=== PATIENT | male | born 1965 | race Caucasian/White ===

== ENCOUNTER 2017-05-29 09:33 | Emergency (ER) | payer OTHER ==
[~2017-05-29] VITALS: Ht 193 cm; Wt 158.8 kg
[~2017-05-29 09:33] MED LIST: AMLO10TA PO; TRAM50TA1 PO
[2017-05-29 10:01] VITALS: BP 164/110
--- NOTE | 2017-05-29 10:05 | NUR ---
Patient to bed 03.
--- NOTE | 2017-05-29 10:09 | NUR ---
51/M BIB SELF C/O PAIN & CHRONIC WOUND TO LEFT LOWER LEG X1 YEAR. PT STATES HE'S HAD AN OPEN SORE ON HIS LEFT LOWER LEG X1 YEAR THAT HAS GOTTEN WORSE. HX HTN, PRE-DIABETIC, HEP C.DENIES N/V/D; AAOX4 WITH EVEN AND UNSTEADY GAIT , AMB WITH CRUTCHES; LUNGS CLEAR BL; HR EVEN AND REGULAR; PT DENIES ANY FEVER, CP, SOB, OR COUGH AT THIS TIME; PATIENT STATES PAIN OF 10/10 AT THIS TIME; PATIENT POSITIONED FOR COMFORT; HOB ELEVATED; BEDRAILS UP X2; BED DOWN. ER MADE AWARE OF PT STATUS. Addendum: 05/29/17 at 1020 by [email or web address] LLE SWELLING Addendum: 05/29/17 at 1021 by [email or web address] WOUND TO LLE & SWELLING & REDNESS.
--- NOTE | 2017-05-29 10:22 | NUR ---
ER MD DR. GUSTAFSON EVALUATING PT AT BEDSIDE.
[2017-05-29 10:42] VITALS: BP 145/80
--- NOTE | 2017-05-29 10:42 | NUR ---
Patient discharged with BP 145/80, DENIES HEADACHE OR DIZINESS AT THIS TIME; MD MADE AWARE. Written and verbal after care instructions given and explained. Patient alert, oriented and verbalized understanding of instructions. Ambulatory with CRUTCHES. All questions addressed prior to discharge. ID band removed. Patient advised to follow up with PMD. Rx of KEFLEX, BACTRIM & OXYCODONE HCL given. Patient educated on indication of medication including possible reaction and side effects. Opportunity to ask questions provided and answered.
== END 2017-05-29 10:42 | disposition home or self-care (01) ==
LOC: MED 09:33
DX: I83.028 Varicose veins of left lower extremity with ulcer other part of lower leg (principal); L03.116 Cellulitis of left lower limb; E11.9 Type 2 diabetes mellitus without complications; I10 Essential (primary) hypertension; Z79.899 Other long term (current) drug therapy
CPT/HCPCS: 99283

== ENCOUNTER 2017-07-02 09:03 | Inpatient (IN) | payer OTHER ==
[~2017-07-02] VITALS: Ht 175.3 cm; Wt 199.6 kg
[2017-07-02 09:10] VITALS: BP 157/79
--- NOTE | 2017-07-02 09:22 | NUR ---
PT AMBULATED TO BED 12.
--- NOTE | 2017-07-02 09:23 | NUR ---
PT C/O OF LEFT LEG PAIN X3 WEEKS, TREATED FOR CELLULITIS 3 WEEKS AGO .HX HTN, DM, BROKE RIGHT PELVIS, HEP C DENIES N/V/D; SKIN IS PINK/WARM/DRY; AAOX4 WITH EVEN AND STEADY GAIT; LUNGS CLEAR BL; HR EVEN AND REGULAR; PT DENIES ANY FEVER, CP, SOB, OR COUGH AT THIS TIME; PATIENT STATES PAIN OF 10/10 AT THIS TIME; VSS; PATIENT POSITIONED FOR COMFORT; HOB ELEVATED; BEDRAILS UP X2; BED DOWN. ER MD MADE AWARE OF PT STATUS.
[2017-07-02] MEDS ORDERED: CLINDAMYCIN 900 MG in DEXTROSE 5% 100 ML IV ONE (09:40)
[2017-07-02] MEDS ORDERED: KETOROLAC 30 MG/ML VIAL IVP ONE (09:40)
[2017-07-02] MEDS ORDERED: CLINDAMYCIN 900 MG/6 ML VIAL IV ONE (09:59)
--- NOTE | 2017-07-02 10:23 | NUR ---
PT STATED PAIN RELIVED.
[2017-07-02 10:32] LABS: BASOPHILS # (AUTO) 0.6 K/uL (0.00-0.22); BASOPHILS % (AUTO) 3.9 % (0.0-2.0); EOSINOPHILS # (AUTO) 0.2 K/uL (0-0.4); EOSINOPHILS % (AUTO) 1.2 % (0.0-4.0); HEMATOCRIT 42.1 % (36-52); LYMPHOCYTES # (AUTO) 1.2 K/uL (2.0-11.5); LYMPHOCYTES % (AUTO) 8.1 % (20.5-51.1); MEAN CORPUSCULAR HEMOGLOBIN 29 pg (27-31); MEAN CORPUSCULAR HGB CONC 33 g/dL (33-37); MEAN CORPUSCULAR VOLUME 88 fL (80-94); MONOCYTES # (AUTO) 0.8 K/uL (0.8-1.0); MONOCYTES % (AUTO) 5.3 % (1.7-9.3); NEUTROPHILS # (AUTO) 12.3 K/uL (1.8-7.7); NEUTROPHILS % (AUTO) 81.5 % (42.2-75.2); PLATELET COUNT (AUTO) 244 K/uL (140-450); RED BLOOD CELL COUNT(AUTO) 4.77 MIL/uL (4.20-6.10); RED CELL DISTRIBUTION WIDTH 13.1 % (11.6-13.7); WHITE BLOOD COUNT (AUTO) 15.1 K/uL (4.8-10.8)
[2017-07-02 10:48] LABS: PROTHROMBIN TIME 10.4 secs (10.8-13.4)
[2017-07-02 10:55] LABS: CARBON DIOXIDE 29.7 mmol/L (21-32); CREATININE 0.9 mg/dL (0.7-1.3); POTASSIUM 3.7 mmol/L (3.5-5.1)
[2017-07-02 11:01] LABS: ALBUMIN 2.9 g/dL (3.4-5.0); TOTAL BILIRUBIN 1.1 mg/dL (0.0-1.0)
[2017-07-02] MEDS ORDERED: NACL 0.9% 2,000 ML IV ONE (11:10)
--- NOTE | 2017-07-02 11:50 | NUR ---
TRANSFERRED PT TO TELE 116, BEDSIDE REPORT GIVEN TO CHRISTIANE TEIXEIRA VITALS STABLE AT THIS TIME. Addendum: 07/02/17 at 1342 by MARK ANTHONY TRANSFERRED PT @ 4006
--- NOTE | 2017-07-02 11:55 | NUR ---
NOTIFIED PT C/O RIGHT PELVIS PAIN.
[2017-07-02] MEDS ORDERED: DEXTROSE 50% 50 ML SYR IVP PRN (12:05)
[2017-07-02] MEDS ORDERED: ONDANSETRON 4 MG/2 ML VIAL IVP PRN (12:05)
[2017-07-02] MEDS ORDERED: ACETAMINOPHEN 325 MG TAB PO PRN (12:05)
[2017-07-02] MEDS ORDERED: MORPHINE SULFATE 2 MG/ML SYR IVP PRN (12:05)
--- NOTE | 2017-07-02 12:45 | NUR ---
PT ARRIVED ON THE UNIT WITH 2 SALE PROFESSIONAL D[employer] MARKETING. PT IS VERY OVERWEIGHT. USED CRUTCHES TO TRANSFER FROM [facility] AND BED. PT HAS IV ON R AC 20G, NS BOLUS 2L, STILL INFUSING. NOTED THE L LEG OPEN WOUND, DRAINING SEROSANGUINOUS FLUIDS. NO PICTURES TAKEN IN ER. REQUESTED SALE PROFESSIONAL [employer] MARKETING TO TAKE PICTURES. NO CODE STATUS, REQUESTED SALE PROFESSIONAL [employer] MARKETING TO PUT IN CHART. MRSA SCREENING DONE. V/S WITHIN NORMAL RANGE. C/O R HIP PAIN 02/20. WILL REQUEST MD FOR PAIN MEDS FOR SEVERE PAIN. ONLY MORPHINE 2 MG AND NORCO ORDERED FOR MODERATE PAIN. CCHO DIET IN PLACE. REQUESTED FNS FOR LATE LUNCH TRAY. BROUGHT HIM A PITCHER OF COLD WATER. NOTED NO OTHER WOUNDS ON BODY. WILL AWAIT 'S ASSESSMENT AND ORDERS. ZOSYN IS DUE AT 1300. WAS NOT GIVEN IN ER. REQUESTED RX TO SEND OVER THE ZOSYN. WILL AWAIT MEDICATION.
[2017-07-02] MEDS: PIPERACILLIN/TAZOBACTAM 3.375 GM in DEXTROSE 5% 50 ML IV SCH ×2 (13:35→20:04)
[2017-07-02 14:00] VITALS: BP 151/87
--- NOTE | 2017-07-02 14:40 | NUR ---
PT VISITING WITH FAMILY, SITTING AT EDGE OF BED. NO COMPLAINTS AT THIS TIME. WILL CONTINUE TO MONITOR PT.
[2017-07-02] MEDS: HYDROcodone/APAP 5/325 MG 1 TAB TAB PO PRN ×2 (15:54→20:04)
[2017-07-02 16:00] VITALS: BP 171/97
--- NOTE | 2017-07-02 16:00 | NUR ---
REQUESTED PAIN MEDS. PAIN 12/21. GAVE HIM NORCO. PT TOLERATED WELL. WILL CONTINUE TO MONITOR PT.
[2017-07-02] MEDS: BLOOD GLUCOSE MONITORING 1 DEV DEV FS SCH ×2 (16:56→20:59)
[2017-07-02] MEDS: INSULIN LISPRO SLIDING SCALE 100 UNITS/ML VIAL SUBQ PRN ×2 (17:10→20:21)
--- NOTE | 2017-07-02 17:45 | NUR ---
PATIENT EATING DINNER AND WATCHING TV. NO SIGNS OF DISTRESS NOTED. WILL CONTINUE TO MONITOR.
--- NOTE | 2017-07-02 19:24 | NUR ---
REPORT GIVEN TO SUPERVISOR LAUNDRY RN AT BEDSIDE FOR CONTINUITY OF CARE. PATIENT IN STABLE CONDITION
--- NOTE | 2017-07-02 19:25 | NUR ---
RECEIVED PT SITTING ON SIDE OF BED TALKING TO VISITORS AT BEDSIDE, VITAL SIGNS TAKEN, BP SLIGHTLY ELEVATED, DENIES CHEST PAIN, NO SOB NOTED, COMPLAINING OF RT HIP PAIN, MADE AWARE OF NEXT DUE TIME FOR PAIN PILL, DRESSING TO LOWER LEFT LEG INTACT, MINIMAL DRAINAGE NOTED, PLAN OF CARE DISCUSSED, SAFETY MEASURES IN PLACE, CALL LIGHT WITHIN REACH.
[2017-07-02 20:00] VITALS: BP 144/94
--- NOTE | 2017-07-02 20:20 | NUR ---
PT IS AMBULATORY USING CRUTCHES, ENCOURAGE TO USE CALL LIGHT IF NEEDS ASSISTANCE, BLOOD SUGAR CHECKED WITH 215 RESULT, COVERAGE GIVEN, SNACK PROVIDED, DUE IV ANTIBIOTIC ADMINISTERED, ALL NEEDS ATTENDED.
[2017-07-03] VITALS: BP 145/99
--- NOTE | 2017-07-03 | NUR ---
PT AWAKE COMPLAINING OF PAIN, VITAL SIGNS TAKEN, BP SLIGHTLY ELEVATED, DENIES CHEST PAIN BUT COMPLAINING OF RT HIP PAIN, MEDICATED PRN WITH NORCO, NO SOB NOTED, CONTINUE TO MONITOR CLOSELY.
[2017-07-03 04:00] VITALS: BP 154/100
[2017-07-03] MEDS: HYDROcodone/APAP 5/325 MG 1 TAB TAB PO PRN ×6 (04:05→20:36)
[2017-07-03] MEDS: PIPERACILLIN/TAZOBACTAM 3.375 GM in DEXTROSE 5% 50 ML IV SCH (04:08)
--- NOTE | 2017-07-03 04:10 | NUR ---
PT COMPLAINING OF RT HIP PAIN, VITAL SIGNS TAKEN, BP SLIGHTLY ELEVATED, DENIES CHEST PAIN, NO SOB NOTED, MEDICATED PRN WITH NORCO, DUE ZOSYN IVPB ADMINISTERED, DRESSING TO LEFT LOWER LEG DRY AND INTACT, MONITORED CLOSELY.
[2017-07-03] MEDS: INSULIN LISPRO SLIDING SCALE 100 UNITS/ML VIAL SUBQ PRN ×4 (05:55→20:39)
--- NOTE | 2017-07-03 06:00 | NUR ---
BLOOD SUGAR CHECKED WITH 190 RESULT, COVERAGE GIVEN, DRESSING TO LEFT LOWER LEG DRY AND INTACT, NO DISTRESS NOTED, MONITORED CLOSELY.
[2017-07-03] MEDS: BLOOD GLUCOSE MONITORING 1 DEV DEV FS SCH ×4 (06:49→20:39)
--- NOTE | 2017-07-03 07:12 | NUR ---
PT AWAKE SITTING ON SIDE OF BED, NO SIGNS OF DISTRESS, REPORT GIVEN TO MORA TEIXEIRA FOR CONTINUITY OF CARE.
--- NOTE | 2017-07-03 07:14 | NUR ---
RECEIVED REPORT FROM SPLICING TECHNICIAN RN AT BEDSIDE FOR CONTINUITY OF CARE. PT SITTING ON SIDE OF BED WATCHING TV. PATIENT IS AO X 4, ON ROOM AIR. NO SIGNS OF DISTRESS NOTED. DENIES CHEST PAIN, NO SOB NOTED, COMPLAINING OF RT HIP PAIN, MADE AWARE OF NEXT DUE TIME FOR PAIN PILL, DRESSING TO LOWER LEFT LEG INTACT, MINIMAL DRAINAGE NOTED. IV R AC #20G SALINE LOCK. SAFETY PRECAUTION IN PLACE. CALL LIGHT WITHIN REACH. BED ON LOWEST SETTING. PATIENT'S BELONGINGS ARE CLOSE TO HIM. WILL CONTINUE TO MONITOR PATIENT.
[2017-07-03 07:16] LABS: BASOPHILS # (AUTO) 0.2 K/uL (0.00-0.22); BASOPHILS % (AUTO) 1.3 % (0.0-2.0); EOSINOPHILS # (AUTO) 0.3 K/uL (0-0.4); EOSINOPHILS % (AUTO) 2.8 % (0.0-4.0); HEMATOCRIT 39.3 % (36-52); LYMPHOCYTES # (AUTO) 1.3 K/uL (2.0-11.5); LYMPHOCYTES % (AUTO) 10.8 % (20.5-51.1); MEAN CORPUSCULAR HEMOGLOBIN 30 pg (27-31); MEAN CORPUSCULAR HGB CONC 33 g/dL (33-37); MEAN CORPUSCULAR VOLUME 90 fL (80-94); MONOCYTES # (AUTO) 1.1 K/uL (0.8-1.0); MONOCYTES % (AUTO) 8.8 % (1.7-9.3); NEUTROPHILS # (AUTO) 9.2 K/uL (1.8-7.7); NEUTROPHILS % (AUTO) 76.3 % (42.2-75.2); PLATELET COUNT (AUTO) 223 K/uL (140-450); RED BLOOD CELL COUNT(AUTO) 4.36 MIL/uL (4.20-6.10); RED CELL DISTRIBUTION WIDTH 13.3 % (11.6-13.7)
[2017-07-03 07:17] LABS: ANION GAP 9.8 (8-16); CARBON DIOXIDE 31.7 mmol/L (21-32); CREATININE 0.9 mg/dL (0.7-1.3); POTASSIUM 3.5 mmol/L (3.5-5.1)
[2017-07-03 07:49] VITALS: BP 149/100
[2017-07-03 07:58] LABS: WHITE BLOOD COUNT (AUTO) 12.1 K/uL (4.8-10.8)
[2017-07-03] MEDS: ENOXAPARIN 40 MG/0.4 ML SYR SUBQ SCH ×2 (08:21→10:30)
--- NOTE | 2017-07-03 08:25 | NUR ---
ADMINISTERED MED ORDERED. PATIENT TOLERATED WELL. PATIENT C/O PAIN 12/21 D/T RIGHT HIP PAIN. MEDICATED PRN WITH NORCO, NO SOB NOTED. WILL CONTINUE TO MONITOR PATIENT CLOSELY.
--- NOTE | 2017-07-03 08:50 | NUR ---
DR BAINS IS HERE. ASSESSED PT. ORDERED FNS CONSULT FOR NEW ONSET OF DM, WOUND CONSULT FOR LLL WOUND, HOME HEALTH CARE FOR THE WOUND, AND MEDS FOR HTN, ABX, AND PAIN. POSSIBLE D/C TODAY OR TOMORROW DEPENDING ON CONSULT AVAILABILITY. CALLED CLARK, WOUND CARE NURSE. LEFT MESSAGE FOR CONSULT. WILL CONTINUE TO MONITOR PT.
[2017-07-03] MEDS ORDERED: cloNIDine 0.1 MG TAB PO PRN (08:55)
--- NOTE | 2017-07-03 09:22 | NUR ---
PATIENT HAS BEEN SCREENED AND CATEGORIZED HIGH NUTRITION RISK FOR GI PROBLEMS. PATIENT WILL BE SEEN WITHIN 1-2 DAYS OF ADMISSION. 07/02/17-07/03/[address]
[2017-07-03] MEDS ORDERED: LISINOPRIL 10 MG TAB ONE (10:16)
[2017-07-03] MEDS: LISINOPRIL 20 MG TAB PO SCH (10:19)
--- NOTE | 2017-07-03 10:20 | NUR ---
ADMINISTERED LISINOPRIL AND JANUVIA TO PATIENT PER NEW ORDER BY MD. PATIENT TOLERATED WELL. PATIENT SITTING AND WATCHING TV. NO SIGNS OF DISTRESS NOTED. PATIENT C/O PAIN 6/10 RIGHT HIP. MADE AWARE OF NEXT DUE FOR PAIN PILL. SAFETY MEASURES IN PLACE. WILL CONTINUE TO MONITOR PATIENT CLOSELY.
[2017-07-03 12:00] VITALS: BP 135/86
--- NOTE | 2017-07-03 12:25 | NUR ---
BLOOD SUGAR CHECKED WITH 266 RESULT. INSULIN COVERAGE GIVEN. PATIENT C/O PAIN 6 OUT OF 10 D/T RIGHT HIP, PRN NORCO GIVEN. SAFETY PRECAUTIONS IN PLACE. NO SIGNS OF DISTRESS NOTED. WILL CONTINUE TO MONITOR PATIENT CLOSELY.
[2017-07-03] MEDS: PIPER/TAZO 3.375GM/D5W PREMIX 50 ML IV SCH ×2 (12:57→20:25)
--- NOTE | 2017-07-03 14:10 | NUR ---
PATIENT SITTING IN BED, TALKING ON THE PHONE. INSTRUMENT MAN CAME TO GIVE HIM SOME HANDOUTS ABOUT DIABETES. NO SIGNS OF DISTRESS NOTED. WILL CONTINUE TO MONITOR PATIENT.
--- NOTE | 2017-07-03 14:21 | NUR ---
CM NOTE INITIAL REVIEW FAXED TO [facility] / FAX# [phone], ATTN: DECEMBER #[phone]
--- NOTE | 2017-07-03 15:19 | NUR ---
07/03/17 RD INITIAL ASSESSMENT COMPLETED PLEASE REFER TO NUTRITION ASSESSMENT UNDER CARE ACTIVITY FOR ESTIMATED NUTRITIONAL NEEDS. 1. PT TO CONTINUE TO RECEIVE 60 GRAM CHO DIET 2. PT TO RECEIVE DIABETIC MNT (COMPLETED) 3. RD TO FOLLOW-UP 2-3 DAYS, HIGH RISK AUGIE WHITTINGTON, JANNETH
[2017-07-03 16:00] VITALS: BP 132/88
[2017-07-03] MEDS: metFORMIN 500 MG TAB PO SCH (16:41)
--- NOTE | 2017-07-03 16:41 | NUR ---
BLOOD SUGAR CHECKED WITH 216 RESULT. INSULIN COVERAGE GIVEN. PATIENT C/O PAIN 6 OUT OF 10 D/T RIGHT HIP, PRN NORCO GIVEN. SAFETY PRECAUTIONS IN PLACE. NO SIGNS OF DISTRESS NOTED. WILL CONTINUE TO MONITOR PATIENT CLOSELY
--- NOTE | 2017-07-03 18:20 | NUR ---
PATIENT SITTING IN BED, WATCHING TV. NO SIGNS OF DISTRESS NOTED. PLAN OF CARE DISCUSSED. PATIENT VERBALIZED UNDERSTANDING. SAFETY PRECAUTIONS IN PLACE. WILL CONTINUE TO MONITOR PATIENT.
--- NOTE | 2017-07-03 19:10 | NUR ---
GAVE REPORT TO DIRECTOR STATISTICAL PROGRAMMING RN AT BEDSIDE FOR CONTINUITY OF CARE. PATIENT IS IN STABLE CONDITION.
--- NOTE | 2017-07-03 19:15 | NUR ---
RECEIVED PT AWAKE SITTING ON SIDE OF BED, VITAL SIGNS STABLE, 94% SAT ON ROOM AIR, NO SOB NOTED, TOLERABLE PAIN AT THIS TIME, MADE AWARE OF NEXT DUE PAIN PILL, DRESSING TO LEFT LOWER LEG DRY AND INTACT, PLAN OF CARE DISCUSS, SAFETY MEASURES IN PLACE, CALL LIGHT WITHIN REACH.
[2017-07-03 20:00] VITALS: BP 131/70
--- NOTE | 2017-07-03 20:40 | NUR ---
BLOOD SUGAR CHECKED WITH 190 RESULT, COVERAGE GIVEN, SNACK PROVIDED, MEDICATED PRN FOR PAIN WITH NORCO, DUE IVPB ZOSYN ADMINISTERED, ALL NEEDS ATTENDED.
[2017-07-04] VITALS: BP 147/101
--- NOTE | 2017-07-04 | NUR ---
PT SLEEPING, EASILY AROUSABLE, VITAL SIGNS TAKEN, BP SLIGHTLY ELEVATED, DENIES CHEST PAIN BUT WITH RT HIP PAIN, WILL MEDICATE PRN, SAT-92% ON ROOM, REFUSED SUPPLEMENTAL O2 SAID "IM GOOD", NO SOB NOTED, RISK AND BENEFITS EXPLAINED, PT WILL CALL IF HE HAS SOB, CONTINUE TO MONITOR CLOSELY.
[2017-07-04] MEDS: HYDROcodone/APAP 5/325 MG 1 TAB TAB PO PRN ×3 (00:29→08:47)
[2017-07-04 04:00] VITALS: BP 118/58
--- NOTE | 2017-07-04 04:35 | NUR ---
PT COMPLAINING OF PAIN, MEDICATED PRN WITH NORCO, DUE IV ANTIBIOTIC ADMINISTERED, MONITORED CLOSELY.
[2017-07-04] MEDS: PIPER/TAZO 3.375GM/D5W PREMIX 50 ML IV SCH (04:36)
--- NOTE | 2017-07-04 05:30 | NUR ---
IV LINE LEAKING, DC WITH CANNULA INTACT, NEW IV LINE INSERTED TO RT HAND #22 WITH GOOD BLOOD RETURN, BLOOD SUGAR CHECKED WITH 174 RESULT, COFFEE PROVIDED PER REQUEST, DRESSING TO LEFT LOWER LEG DRY AND INTACT, MONITORED CLOSELY.
[2017-07-04] MEDS: INSULIN LISPRO SLIDING SCALE 100 UNITS/ML VIAL SUBQ PRN (06:00)
[2017-07-04 06:37] LABS: BASOPHILS # (AUTO) 0.2 K/uL (0.00-0.22); BASOPHILS % (AUTO) 1.7 % (0.0-2.0); EOSINOPHILS # (AUTO) 0.4 K/uL (0-0.4); HEMATOCRIT 37.9 % (36-52); HEMOGLOBIN 12.4 g/dL (12.0-18.0); LYMPHOCYTES # (AUTO) 1.4 K/uL (2.0-11.5); LYMPHOCYTES % (AUTO) 10.6 % (20.5-51.1); MEAN CORPUSCULAR HEMOGLOBIN 29 pg (27-31); MEAN CORPUSCULAR HGB CONC 33 g/dL (33-37); MEAN CORPUSCULAR VOLUME 90 fL (80-94); MONOCYTES # (AUTO) 1.2 K/uL (0.8-1.0); MONOCYTES % (AUTO) 9.2 % (1.7-9.3); NEUTROPHILS # (AUTO) 10.2 K/uL (1.8-7.7); NEUTROPHILS % (AUTO) 75.5 % (42.2-75.2); PLATELET COUNT (AUTO) 225 K/uL (140-450); RED BLOOD CELL COUNT(AUTO) 4.22 MIL/uL (4.20-6.10); WHITE BLOOD COUNT (AUTO) 13.4 K/uL (4.8-10.8)
[2017-07-04] MEDS: BLOOD GLUCOSE MONITORING 1 DEV DEV FS SCH (07:10)
--- NOTE | 2017-07-04 07:10 | NUR ---
PT AWAKE, NO SIGNS OF DISTRESS, REPORT GIVEN TO MORA KIMBLE FOR CONTINUITY OF CARE.
[2017-07-04 07:13] LABS: ANION GAP 8.7 (8-16); CARBON DIOXIDE 29.9 mmol/L (21-32); CREATININE 0.8 mg/dL (0.7-1.3); POTASSIUM 3.6 mmol/L (3.5-5.1)
--- NOTE | 2017-07-04 07:15 | NUR ---
RECEIVED REPORT FROM PACKER AND CARRY OUT NURSE, PT IS SITTING AT THE SIDE OF THE BED, PT IS A/OX4, AMBULATES WITH CRUTCHES, NO S/S OF RESPIRATORY DISTRESS OR DISCOMFORT NOTED, PT HAS A DRESSING ON HIS LEFT LOWER EXTREMITY, DRY AND INTACT, DISCUSSED PLAN OF CARE WITH PT, PT VERBALIZED UNDERSTANDING, CALL LIGHT IS WITHIN REACH, WILL CONTINUE TO MONITOR.
[2017-07-04 08:00] VITALS: BP 135/79
[2017-07-04] MEDS ORDERED: SKINTEGRITY HYDROGEL TP PRN (08:05)
--- NOTE | 2017-07-04 08:05 | NUR ---
WOUND CARE EVALUATION NOTE: REASON FOR EVALUATION: LLE CELLULITIS COMPLETE SKIN ASSESSMENT DONE ON THIS 51 Y/O MALE PATIENT FROM HOME TO [facility], WITH INITIAL DIAGNOSIS OF LEFT LOWER LEG WOUND. PAST MEDICAL HISTORY INCLUDE HYPERTENSION, MORBID OBESITY AND UNHEALING WOUND. NEW DX WITH DN, ALL ABOVE INFORMATION WAS OBTAINED FROM THE ADMISSION H&P AND PT.. LABS ARE WBC 13.4, H/H 12.4/37.9, GLUCOSE 188, ALBUMIN 2.9, PT/INR 10.4/1.0 AND PTT 27.3. CURRENT MEDS INCLUDE METFORMIN, INSULIN, PIPERACILLIN AND ENOXAPARIN. PATIENT IS AWAKE, ORIENTED TO PERSON, PLACE AND TIME. SKIN WARM TO TOUCH WNL, TOENAILS ARE YELLOW AND THICKENED, +2 EDEMA BLE, NO HAIR GROWTH AND BILATERAL PEDAL PULSES PRESENT. URINE AND BOWEL CONTINENT, ABLE TO USE URINAL. WOUND CARE TEACHING TO PT. AND INITIAL PLAN OF CARE DISCUSSED WITH PT. AND PRIMARY RN. PT.VERBALIZE UNDERSTANDING. INTEGUMENTARY: PT. REFUSES TO BE ASSESS ON CRESCENCIO-AREAS MULTIPLE DRY SCABS LOWER BACK DRYNESS BLLE LLE POSTERIOR CELLULITIS 6X13X0.1 CM WITH SMALL AMOUNT OF SEROUS DRAINAGE, NO ODOR, WOUND EDGE FLAT, CRESCENCIO-WOUND PALE PINK RECOMMENDATIONS: -MAY HAVE HOME HEALTH CARE FOLLOW FOR WOUND CARE UPON DISCHARGED -CLEANSE LLE CELLULITIS WITH NS. PAT DRY, APPLY HYDROGEL WITH ADAPTIC DRESSING, COVER WITH DRY DRESSING AND WRAP WITH KERLIX Q DAY AND PRN IF SOILING -ASSESS AND MONITOR SKIN CONDITION DURING POSITION CHANGE -OFFLOAD BILATERAL HEELS BY PLACING PILLOWS UNDER CALVES AT ALL TIMES, UNLESS OTHERWISE CONTRAINDICATED -KEEP SKIN CLEAN AND DRY AT ALL TIMES. RECOMMENDATIONS DISCUSSED WITH PRIMARY RN PLEASE CONTACT WOUND CARE NURSE FOR ANY QUESTIONS AND CHANGES IN WOUND CONDITION.
[2017-07-04] MEDS: LISINOPRIL 20 MG TAB PO SCH (08:46)
[2017-07-04] MEDS: metFORMIN 500 MG TAB PO SCH (08:46)
--- NOTE | 2017-07-04 08:46 | NUR ---
DUE MEDICATIONS GIVEN, PT TOLERATED WELL, CALL LIGHT IS WITHIN REACH.
--- NOTE | 2017-07-04 12:40 | NUR ---
PATIENT REFUSED WOUND PHOTOS TO BE TAKEN BECAUSE HE SAID HIS RIDE WAS WAITING FOR HIM OUTSIDE.
--- NOTE | 2017-07-04 12:45 | NUR ---
DISCHARGE INSTRUCTIONS GIVEN, IV REMOVED, CATHETER TIP INTACT, ID WRIST BAND REMOVED, PT WAS PROVIDED WITH A WEEKS WORTH OF WOUND CARE DRESSING CHANGES. PT STABLE UPON DISCHARGE.
[2017-07-04] MEDS ORDERED: SKINTEGRITY HYDROGEL TP SCH (13:00)
--- NOTE | 2017-07-04 13:43 | NUR ---
1230 SPOKE WITH PT AT BEDSIDE. STATED HE HAD BEEN TRYING TO CARE FOR HIS LEFT LOWER LEG WOUND BY HIMSELF BUT ONLY SEEMED TO GET WORSE. PT IS AGREEABLE TO HOME HEALTH NURSE AND DOES NOT HAVE A PREFERENCE OF AGENCIES. INFORMED HIM WILL GET AUTH FOR AGENCY CONTRACTED WITH [facility]. SPOKE WITH TRUONG AT [facility] AND SHE STATED WHATEVER CONTRACTED HH HAS NURSE AVAILABLE OVER THE WEEK END SHE WILL AUTH. [id number] [phone] FAX [phone] HAS ACCEPTED PT FOR ADMISSION.
--- NOTE | 2017-07-04 14:40 | NUR ---
CM NOTE PER [facility] DECEMBER PH# [phone], FOR [facility] PH#[phone]
== END 2017-07-04 12:45 | disposition home health service (06) | DRG 872 ==
LOC: MED 09:03 → MTU 12:12
PROVIDERS: ADMIT Internal Medicine; ATTEND Internal Medicine
DX: A41.9 Sepsis, unspecified organism (principal); E66.01 Morbid (severe) obesity due to excess calories; L03.116 Cellulitis of left lower limb; Z68.44 Body mass index [BMI] 60.0-69.9, adult; E11.9 Type 2 diabetes mellitus without complications; I10 Essential (primary) hypertension; Z96.649 Presence of unspecified artificial hip joint; Z87.891 Personal history of nicotine dependence; Z83.3 Family history of diabetes mellitus
CPT/HCPCS: 36415; 71010; 80048; 80053; 82948; 83036; 83605; 83880; 85025; 85610; 85730; 87040; 87070; 87081; 87186; 96361; 96365; 96375; 99285; A6248; J1650; J1815; J1885; J2543; J3490; J7030; J7060; Q0092

== ENCOUNTER 2017-10-03 10:02 | Outpatient (CLI) | payer OTHER | END 2017-10-03 17:58 | disposition home or self-care (01) | LOC: MRD 10:02 | PROVIDERS: ATTEND Family Medicine | DX: S72.001A Fracture of unspecified part of neck of right femur, initial encounter for closed fracture (principal); Z96.641 Presence of right artificial hip joint; X58.XXXA Exposure to other specified factors, initial encounter; Y93.89 Activity, other specified; Y92.89 Other specified places as the place of occurrence of the external cause; Y99.8 Other external cause status | CPT/HCPCS: 73502 ==

== ENCOUNTER 2019-02-08 07:50 | Observation (INO) | payer OTHER ==
[~2019-02-08] VITALS: Ht 175.3 cm; Wt 131.5 kg
[2019-02-08 07:55] VITALS: BP 130/49
[2019-02-08] MEDS ORDERED: NACL 0.9% 500 ML IV ONE (08:30)
[2019-02-08 09:32] LABS: BASOPHILS # (AUTO) 0.1 K/uL (0.00-0.22); BASOPHILS % (AUTO) 0.6 % (0.0-2.0); EOSINOPHILS # (AUTO) 0.1 K/uL (0-0.4); EOSINOPHILS % (AUTO) 0.8 % (0.0-4.0); HEMATOCRIT 41.5 % (36-52); LYMPHOCYTES # (AUTO) 2.3 K/uL (2.0-11.5); MEAN CORPUSCULAR HEMOGLOBIN 30 pg (27-31); MEAN CORPUSCULAR HGB CONC 34 g/dL (33-37); MEAN CORPUSCULAR VOLUME 88.1 fL (80-94); MONOCYTES # (AUTO) 0.8 K/uL (0.8-1.0); MONOCYTES % (AUTO) 7.6 % (1.7-9.3); NEUTROPHILS # (AUTO) 6.9 K/uL (1.8-7.7); PLATELET COUNT (AUTO) 237 K/uL (140-450); RED BLOOD CELL COUNT(AUTO) 4.71 MIL/uL (4.20-6.10); RED CELL DISTRIBUTION WIDTH 13.9 % (11.6-13.7); WHITE BLOOD COUNT (AUTO) 10.1 K/uL (4.8-10.8)
[2019-02-08 10:10] LABS: PROTHROMBIN TIME 10.4 secs (10.8-13.4)
[2019-02-08 10:21] LABS: CARBON DIOXIDE 26.2 mmol/L (21-32); CREATININE 0.8 mg/dL (0.7-1.3); POTASSIUM 3.2 mmol/L (3.5-5.1)
[2019-02-08 10:22] LABS: TOTAL BILIRUBIN 0.8 mg/dL (0.0-1.0)
[2019-02-08] MEDS ORDERED: ASPIRIN 81 MG TAB.CHEW PO ONE (10:30)
[2019-02-08] MEDS ORDERED: NITROGLYCERIN 2% 1 GM PKT TP ONE (10:30)
[2019-02-08] MEDS ORDERED: POTASSIUM CHLORIDE 10 MEQ TABER PO ONE (10:35)
[2019-02-08] MEDS ORDERED: TRAM50TA1 PO (10:46)
[2019-02-08] MEDS ORDERED: NACL 0.9% 3,500 ML IV ONE (10:50)
[2019-02-08] MEDS ORDERED: NITROGLYCERIN 0.4 MG TAB SL PRN (13:30)
[2019-02-08] MEDS ORDERED: INSULIN LISPRO SLIDING SCALE 100 UNITS/ML VIAL SUBQ PRN (13:30)
[2019-02-08] MEDS ORDERED: DEXTROSE 50% 50 ML SYR IVP PRN (13:30)
[2019-02-08] MEDS: MORPHINE SULFATE 2 MG/ML SYR IVP PRN (14:32)
[2019-02-08 16:00] VITALS: BP 134/80
[2019-02-08] MEDS: BLOOD GLUCOSE MONITORING 1 DEV DEV FS SCH ×2 (16:30→21:12)
[2019-02-08 20:00] VITALS: BP 136/78
[2019-02-08] MEDS: traMADol 50 MG TAB PO SCH (21:11)
[2019-02-08] MEDS ORDERED: LORazepam 1 MG TAB PO PRN (21:20)
[2019-02-09] VITALS: BP 130/70
[2019-02-09] MEDS: MORPHINE SULFATE 2 MG/ML SYR IVP PRN ×2 (03:03→13:33)
[2019-02-09 03:33] LABS: BARBITURATE, URINE NEG. ng/ml (NEG <=200); BENZODIAZEPINE, URINE NEG. ng/mL (NEG <=200); CANNABINOID, URINE NEG. ng/mL (NEG <=50); COCAINE, URINE NEG. ng/mL (NEG <=300); OPIATE, URINE NEG. ng/mL (NEG <=2000); PHENCYCLIDINE SCREEN,URINE NEG. ng/mL (NEG <=25)
[2019-02-09 04:00] VITALS: BP 140/90
[2019-02-09] MEDS: BLOOD GLUCOSE MONITORING 1 DEV DEV FS SCH ×3 (06:41→16:30)
[2019-02-09 07:08] LABS: ANION GAP 11.9 (8-16); BASOPHILS % (AUTO) 0.6 % (0.0-2.0); CREATININE 0.8 mg/dL (0.7-1.3); EOSINOPHILS # (AUTO) 0.1 K/uL (0-0.4); EOSINOPHILS % (AUTO) 1.5 % (0.0-4.0); HEMATOCRIT 41.6 % (36-52); HEMOGLOBIN 14.1 g/dL (12.0-18.0); LYMPHOCYTES # (AUTO) 1.9 K/uL (2.0-11.5); MEAN CORPUSCULAR HEMOGLOBIN 30 pg (27-31); MEAN CORPUSCULAR HGB CONC 34 g/dL (33-37); MEAN CORPUSCULAR VOLUME 89.5 fL (80-94); MONOCYTES # (AUTO) 0.6 K/uL (0.8-1.0); MONOCYTES % (AUTO) 7.6 % (1.7-9.3); NEUTROPHILS # (AUTO) 5.8 K/uL (1.8-7.7); NEUTROPHILS % (AUTO) 68.3 % (42.2-75.2); PLATELET COUNT (AUTO) 208 K/uL (140-450); POTASSIUM 3.9 mmol/L (3.5-5.1); RED BLOOD CELL COUNT(AUTO) 4.65 MIL/uL (4.20-6.10); RED CELL DISTRIBUTION WIDTH 13.8 % (11.6-13.7); WHITE BLOOD COUNT (AUTO) 8.4 K/uL (4.8-10.8)
[2019-02-09 08:00] VITALS: BP 183/94
[2019-02-09] MEDS: traMADol 50 MG TAB PO SCH (09:51)
[2019-02-09 12:00] VITALS: BP 154/89
[2019-02-09 16:00] VITALS: BP 154/89
== END 2019-02-09 17:30 | disposition home or self-care (01) ==
LOC: MED 07:50 → MTU 11:02
PROVIDERS: ADMIT Internal Medicine; ATTEND Internal Medicine
DX: R07.2 Precordial pain (principal); I10 Essential (primary) hypertension; E11.9 Type 2 diabetes mellitus without complications; E66.01 Morbid (severe) obesity due to excess calories; E87.6 Hypokalemia; F41.9 Anxiety disorder, unspecified; E87.2 Acidosis; F32.9 Major depressive disorder, single episode, unspecified
CPT/HCPCS: 36415; 71045; 80048; 80053; 80305; 82553; 82948; 83605; 83880; 84484; 85025; 85610; 85730; 87040; 87081; 96360; 96361; 96374; 96376; 99285; G0378; J1815; J2270; Q0092

== ENCOUNTER 2019-04-18 06:36 | Inpatient (IN) | payer OTHER ==
[~2019-04-18] VITALS: Ht 185.4 cm; Wt 158.3 kg
[~2019-04-18 06:36] MED LIST changes: -AMLO10TA PO
[2019-04-18 06:49] VITALS: BP 86/50
--- NOTE | 2019-04-18 06:56 | NUR ---
PT WALKED WITH CRUTCHES TO BED 5
--- NOTE | 2019-04-18 07:15 | NUR ---
53 Y/O M PT PRESENTS TO ER FOR RIGHT HIP, LEG AND BACK PAIN S/P MECHANICAL FALL LAST NIGHT. PER PT HE WAS WALKING DOWN STAIRS WITH HIS CRUTCHES AND MISSED THE STEP AND FELL ON RIGHT SIDE. PT DENIES HEAD INJURY OR LOC. PT HAS HX OF BROKEN PELVIS THAT NEEDS SURGERY. PER PT HE IS UNABLE TO HAVE THE SURGERY BECAUSE HE NEEDS TO LOSE WEIGHT. PT PAIN LEVEL 10/10 SHARP PAIN TO RIGHT HIP, LEG AND BACK. PT UNABLE TO BEAR WEIGHT WITH CRUTCHES. LAST NIGHT PT TOOK 800MG IBUPROFEN AND 25MG TRAMADOL FOR PAIN WITH MINIMAL RELIEF. ALLERGIES: NKA. MED HX: DM, HTN AND HEP C. SAFETY MEASURES IN PLACE. WAITING FOR ERMD TO EVALUATE PT.
--- NOTE | 2019-04-18 07:40 | NUR ---
Anne shah in ED - 04/18/19 at [email or web address] Winters evaluating pt at bedside
--- NOTE | 2019-04-18 07:42 | NUR ---
Patient being evaluated by DR GASTON at bedside.
[2019-04-18] MEDS ORDERED: KETOROLAC 30 MG/ML VIAL IM ONE (07:55)
--- NOTE | 2019-04-18 08:02 | NUR ---
PT TAKEN TO CT VIA W/C, ACCOMPANIED BY MATERIAL HANDLING SUPERVISOR.
--- NOTE | 2019-04-18 08:53 | NUR ---
PT RETURNED FROM CT AT THIS TIME
--- NOTE | 2019-04-18 09:05 | NUR ---
PT STATES PAIN LEVEL DECREASED TO LEVEL 7/10.
[2019-04-18] MEDS ORDERED: IBUP-1842 PO (10:45)
[2019-04-18] MEDS ORDERED: AMLO5TAB PO (10:45)
[2019-04-18] MEDS ORDERED: HYDR-39 PO (10:45)
[2019-04-18] MEDS ORDERED: METF500T2 PO (10:45)
[2019-04-18] MEDS ORDERED: SITA50TA3 PO (10:45)
[2019-04-18] MEDS ORDERED: TRAM50TA1 PO (10:45)
--- NOTE | 2019-04-18 10:50 | NUR ---
PT ARRIVED ON FLOOR. RECEIVED REPORT FROM ER NURSE VIA WHEELCHAIR. PT IN STABLE CONDITION. AAO X4. SKIN INTACT. IV IN PLACE L HAND 22G SALINE LOCKED. RESPIRATIONS EVEN AND UNLABORED ON ROOM AIR. INITIAL ASSESSMENT DONE, MRSA NARES SWAB AND VITAL SIGNS CHECKED. BED IN LOW POSITION. SAFETY MEASURES IN PLACE. CALL LIGHT WITHIN REACH. WILL CONTINUE TO MONITOR.
--- NOTE | 2019-04-18 10:50 | NUR ---
Transfer of care and report given to MORA Hansen.
--- NOTE | 2019-04-18 10:52 | NUR ---
Patient will be admitted to care of Dr. grande. Admited to [facility]. Will go to room 119b. Belongings list completed. Report to MORA Hansen.
[2019-04-18] MEDS ORDERED: ACETAMINOPHEN 650 MG SUPP RC PRN (11:05)
[2019-04-18] MEDS ORDERED: cloNIDine 0.1 MG TAB PO PRN (11:05)
[2019-04-18] MEDS ORDERED: ONDANSETRON 4 MG/2 ML VIAL IVP PRN (11:05)
[2019-04-18] MEDS ORDERED: LORazepam 2 MG/ML VIAL IVP PRN (11:05)
[2019-04-18] MEDS ORDERED: DOCUSATE SODIUM 250 MG GELCAP PO PRN (11:05)
[2019-04-18] MEDS ORDERED: ALBUTEROL 0.083% 2.5 MG/3 ML NEBU INH PRN (11:05)
[2019-04-18] MEDS ORDERED: POTASSIUM CHLORIDE 10 MEQ TABER PO PRN (11:05)
[2019-04-18] MEDS ORDERED: ZOLPIDEM 5 MG TAB PO PRN (11:05)
[2019-04-18] MEDS ORDERED: ALUMINUM HYD/MAG/SIMETHICONE 30 ML UDC PO PRN (11:05)
[2019-04-18] MEDS ORDERED: MAG SULF 2000 MG/WATER PREMIX 50 ML IV PRN (11:05)
[2019-04-18] MEDS ORDERED: MORPHINE SULFATE 2 MG/ML SYR IVP PRN (11:05)
[2019-04-18] MEDS ORDERED: diphenhydrAMINE 50 MG/ML VIAL IVP PRN (11:05)
[2019-04-18] MEDS ORDERED: ACETAMINOPHEN 325 MG TAB PO PRN (11:05)
[2019-04-18] MEDS ORDERED: IPRATROPIUM 0.02% 0.5 MG/2.5 ML NEBU INH PRN (11:05)
[2019-04-18] MEDS ORDERED: BISACODYL 10 MG SUPP RC PRN (11:05)
[2019-04-18] MEDS ORDERED: guaiFENesin DM 200/20 MG-10 ML 10 ML UDC PO PRN (11:05)
[2019-04-18] MEDS ORDERED: DEXTROSE 50% 50 ML SYR IVP PRN (11:05)
[2019-04-18] MEDS ORDERED: MAGNESIUM OXIDE 400 MG TAB PO PRN (11:05)
[2019-04-18] MEDS ORDERED: INSULIN LISPRO SLIDING SCALE 100 UNITS/ML VIAL SUBQ PRN (11:05)
[2019-04-18] MEDS ORDERED: SODIUM PHOSPHATE 118 ML ENEM RC PRN (11:05)
[2019-04-18] MEDS: HYDROcodone/APAP 5/325 MG 1 TAB TAB PO PRN ×4 (12:38→23:56)
--- NOTE | 2019-04-18 12:40 | NUR ---
MEDICATIONS ADMINISTERED PER ORDER. PT TOLERATED WELL. NO DISTRESS NOTED. WILL CONTINUE TO MONITOR.
[2019-04-18] MEDS: BLOOD GLUCOSE MONITORING 1 DEV DEV FS SCH ×3 (12:42→21:27)
--- NOTE | 2019-04-18 13:24 | NUR ---
PATIENT HAS BEEN SCREENED AND CATEGORIZED HIGH NUTRITION RISK. PATIENT WILL BE SEEN WITHIN 1-2 DAYS OF ADMISSION. 04/19/19 - 04/20/19 SHARMILA MACEDO MBA, RD
[2019-04-18 13:59] VITALS: BP 161/98
[2019-04-18 16:01] LABS: BASOPHILS % (AUTO) 0.5 % (0.0-2.0); EOSINOPHILS # (AUTO) 0.1 K/uL (0-0.4); HEMATOCRIT 41.2 % (36-52); HEMOGLOBIN 13.6 g/dL (12.0-18.0); LYMPHOCYTES % (AUTO) 21.5 % (20.5-51.1); MEAN CORPUSCULAR HEMOGLOBIN 30 pg (27-31); MEAN CORPUSCULAR HGB CONC 33 g/dL (33-37); MONOCYTES # (AUTO) 1.1 K/uL (0.8-1.0); MONOCYTES % (AUTO) 11.7 % (1.7-9.3); NEUTROPHILS # (AUTO) 6.2 K/uL (1.8-7.7); NEUTROPHILS % (AUTO) 65.3 % (42.2-75.2); PLATELET COUNT (AUTO) 197 K/uL (140-450); RED BLOOD CELL COUNT(AUTO) 4.62 MIL/uL (4.20-6.10); RED CELL DISTRIBUTION WIDTH 13.9 % (11.6-13.7); WHITE BLOOD COUNT (AUTO) 9.4 K/uL (4.8-10.8)
[2019-04-18] MEDS: NACL 0.45% 1,000 ML IV SCH (16:10)
[2019-04-18 16:12] LABS: PROTHROMBIN TIME 10.4 secs (10.8-13.4)
[2019-04-18 16:19] LABS: ALBUMIN 3.2 g/dL (3.4-5.0); ANION GAP 10.3 (8-16); CARBON DIOXIDE 28.6 mmol/L (21-32); CREATININE 0.8 mg/dL (0.7-1.3); POTASSIUM 3.9 mmol/L (3.5-5.1); TOTAL BILIRUBIN 0.6 mg/dL (0.0-1.0)
--- NOTE | 2019-04-18 16:32 | NUR ---
MEDICATIONS ADMINISTERED PER ORDER. BLOOD SUGAR CHECKED. PT IN NO DISTRESS IN COMPANY OF FAMILY MEMBERS. WILL CONTINUE TO MONITOR.
[2019-04-18] MEDS ORDERED: PNEUMOCOCCAL VACCINE 23 MCG/0.5 ML VIAL IMVAC PRN (18:40)
[2019-04-18] MEDS ORDERED: PNEUMOCOCCAL VACCINE 23 MCG/0.5 ML VIAL IMVAC SCH (18:45)
--- NOTE | 2019-04-18 19:18 | NUR ---
PT HANDED OFF TO NIGHT NURSE IN STABLE CONDITION FOR CONTINUITY OF CARE.
--- NOTE | 2019-04-18 19:20 | NUR ---
RECEIVED REPORT FORM ROCKY RN AND TIA RN DAYSHIFT NURSES AT BEDSIDE FOR CONTINUITY OF CARE, PT IN STABLE CONDITION.
[2019-04-18 20:00] VITALS: BP 156/80
[2019-04-18] MEDS: metFORMIN 500 MG TAB PO SCH (21:19)
--- NOTE | 2019-04-18 21:25 | NUR ---
PT SITTING IN BED AOX4 IV SITE L HAND 22G RUNNING 1/2 NS AT 50MLS/HR. PT HAS CRUTCHES AT BEDSIDE FOR AMBULATION. PT ABLE TO AMBULATE TO TOILET AND BACK WITH CRUTCHES. PT C/O 8/10 PAIN IN RIGHT HIP. PT GIVEN 2 TABS NORCO 5/325MG FOR SEVERE PAIN. V/S FOLLOWS T 97.0 P 72 R 18 B/P 156/80 02 97% ON ROOM AIR. ALL REQUESTED NEEDS ATTENDED AND CALL MOYER IN REACH.
[2019-04-19] VITALS: BP 171/92
--- NOTE | 2019-04-19 00:15 | NUR ---
PT IN BED WITH C/O OF MODERATE PAIN. PT GIVEN 1 TAB OF NORCO. PT B/P WAS HIGH AND HE WAS GIVEN PO/PRN CATAPRES FOR HTN. PT REMINDED THAT HE NOW NEEDS TO BE NPO FOR POSSIBLE SURGERY TOMORROW. PT VERBALIZED UNDERSTANDING V/S FOLLOWS T 97.1 P 68 R 18 B/P 171/92 02 97% ON ROOM AIR. WILL REASSESS B/P LATER FOR EFFECTIVENESS. BED LOW AND ALL FALLS PRECAUTIONS IN PLACE.
--- NOTE | 2019-04-19 01:45 | NUR ---
REASSESS PT B/P POST CATAPRES B/P IS 156/80. PT VOIDED 450MLS OF BHAVANI URINE. PT DENIES PAIN , ALL FALLS PRECAUTIONS IN PLACE AND CALL MOYER IN REACH.
--- NOTE | 2019-04-19 07:25 | NUR ---
RECEIVED REPORT FROM COBBLER SOLE NURSE. PATIENT IS ON ROOM AIR, A&O X4. IV TO LEFT HAND 22G, SKIN IS INTACT. PT HAS 1/2 NS INFUSING AT 50ML/HR. PT IS AMBULATORY WITH CRUTCHES. PT IS NPO D/T POSSIBLE SX. WILL CONTINUE WITH PLAN OF CARE.
[2019-04-19] MEDS: BLOOD GLUCOSE MONITORING 1 DEV DEV FS SCH ×3 (07:30→16:55)
[2019-04-19 08:00] VITALS: BP 148/93
[2019-04-19] MEDS: metFORMIN 500 MG TAB PO SCH (08:56)
[2019-04-19] MEDS: HYDROcodone/APAP 5/325 MG 1 TAB TAB PO PRN (08:58)
[2019-04-19] MEDS ORDERED: LISINOPRIL 20 MG TAB PO SCH (09:00)
[2019-04-19] MEDS ORDERED: HYDROCHLOROTHIAZIDE 25 MG TAB PO SCH (09:00)
[2019-04-19] MEDS ORDERED: ENOXAPARIN 40 MG/0.4 ML SYR SUBQ SCH (09:00)
[2019-04-19] MEDS ORDERED: amLODIPine 5 MG TAB PO SCH (09:00)
--- NOTE | 2019-04-19 09:07 | NUR ---
ADMINISTERED MORNING MEDICATION TO PATIENT. PATIENT RECEIVED LOVENOX FOR PLATELETS OF 197.
--- NOTE | 2019-04-19 09:31 | NUR ---
PATIENT IS OFF THE UNIT FOR CT SCAN.
[2019-04-19] MEDS: NACL 0.45% 1,000 ML IV SCH (11:10)
--- NOTE | 2019-04-19 11:44 | NUR ---
CONTACTED PATIENT'S PCP DR. NIGEL ZHOU AT [phone], ABLE TO SPEAK TO MONICA REGARDING POST DISCHARGE APPOINTMENT. SHE PROVIDED ME WITH Apr AT 0945 AM. COPY OF APPOINTMENT PROVIDED TO THE PATIENT.
[2019-04-19 16:00] VITALS: BP 142/85
[2019-04-19] MEDS ORDERED: HYDR-5092 PO ×4 (17:15→17:21)
--- NOTE | 2019-04-20 09:09 | NUR ---
ORDER FOR [facility] ([facility]) FOR PT FAXED TO [facility]. REFERRAL SENT TO [facility]. CM TO FOLLOW UP.
--- NOTE | 2019-04-20 10:04 | NUR ---
CONTACTED CATHERINE OF [facility] REGARDING ON AUTH FOR HOME HEALTH AND FOREWHEEL WALKER. SHE STATED SHE IS WORKING ON IT AND WILL GIVE ME CALL.
--- NOTE | 2019-04-20 13:35 | NUR ---
CONTACTED [facility] AT [phone], ABLE TO SPEAK TO JAY REGARDING ORDER FOR FOREWHEEL WALKER. SHE STATED SHE WILL CALL ME BACK.
--- NOTE | 2019-04-20 15:25 | NUR ---
RECEIVED A CALL FROM CATHERINE OF [facility], SHE SAID AUTHORIZATION FOR THE WALKER IS IN WITH [employer]. CONTACTED YASMEEN OF [facility] [employer] AT [phone], HE STATED TO GO AHEAD AND FAX OVER ORDER TO [phone]. ORDER FAXED. WILL FOLLOW UP.
== END 2019-04-19 17:40 | disposition home health service (06) | DRG 537 ==
LOC: MED 06:36 → MTU 10:29
PROVIDERS: ADMIT Internal Medicine Pulmonary Disease; ATTEND Internal Medicine Pulmonary Disease
DX: S73.004A Unspecified dislocation of right hip, initial encounter (principal); E44.1 Mild protein-calorie malnutrition; Z68.42 Body mass index [BMI] 45.0-49.9, adult; S32.401A Unspecified fracture of right acetabulum, initial encounter for closed fracture; I10 Essential (primary) hypertension; E11.9 Type 2 diabetes mellitus without complications; E66.01 Morbid (severe) obesity due to excess calories; Z96.641 Presence of right artificial hip joint; G89.29 Other chronic pain; W18.39XA Other fall on same level, initial encounter; Y93.89 Activity, other specified; Y92.89 Other specified places as the place of occurrence of the external cause; Z79.84 Long term (current) use of oral hypoglycemic drugs; Z79.899 Other long term (current) drug therapy; Y99.8 Other external cause status
CPT/HCPCS: 36415; 72131; 72192; 80053; 82948; 83036; 85025; 85610; 85730; 87081; 96372; 97116; 97161-GP; 99285; J1650; J1815; J1885; J7030